=== PATIENT | female | born 2000 | race American Indian/Alaskan Native ===

== ENCOUNTER 2020-02-08 17:39 | Emergency (ER) | payer OTHER ==
[2020-02-08 17:55] VITALS: BP 130/82
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
[2020-02-08 20:51] LABS: HCG Qualitative,Urine Negative (Negative)
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
[2020-02-08] MEDS ORDERED: IBUPROFEN 800 MG TAB PO ONE (22:07)
[2020-02-08] MEDS ORDERED: IBUPROFEN 800 MG TAB ONE (22:07)
== END 2020-02-08 22:14 | disposition home or self-care (01) ==
LOC: ED 17:39
DX: S16.1XXA Strain of muscle, fascia and tendon at neck level, initial encounter (principal); S10.91XA Abrasion of unspecified part of neck, initial encounter; Z79.899 Other long term (current) drug therapy; V49.59XA Passenger injured in collision with other motor vehicles in traffic accident, initial encounter; W22.10XA Striking against or struck by unspecified automobile airbag, initial encounter; Y93.89 Activity, other specified; Y92.410 Unspecified street and highway as the place of occurrence of the external cause; Y99.8 Other external cause status
CPT/HCPCS: 72040; 81025

== ENCOUNTER 2021-03-29 20:11 | Outpatient (CLI) | payer OTHER ==
[2021-03-29 22:36] LABS: Bilirubin,Urine NEG (Negative); Blood,Urine NEG (Negative); Color,Urine Yellow (Yellow); Mucus,Urine FEW /HPF; Urobilinogen,Urine < 2.0 mg/dL (<2.0)
[2021-03-29 22:41] LABS: Hematocrit 33.5 % (30.3-42.9); Mean Corpuscular HGB Conc 33 % (30-34); Mean Corpuscular Volume 90 fl (79-97); Platelet Count 236 K/mm3 (140-440); Red Blood Count 3.71 M/mm3 (3.65-5.03); Red Cell Distribution Width 15.2 % (13.2-15.2)
[2021-03-29 23:15] LABS: Alanine Aminotransferase 9 units/L (7-56)
[2021-03-29 23:43] VITALS: BP 147/86
[2021-03-29] MEDS ORDERED: ACETAMINOPHEN 500 MG TAB PO ONE (23:50)
[2021-03-30 00:13] LABS: Uric Acid 4.6 mg/dL (3.5-7.6)
== END 2021-03-30 00:05 | disposition home or self-care (01) ==
LOC: TRG 20:11 → APU 20:13 → TRG 03-30 00:05
PROVIDERS: ATTEND Obstetrics & Gynecology
DX: O12.03 Gestational edema, third trimester (principal); Z3A.37 37 weeks gestation of pregnancy
CPT/HCPCS: 36415; 59025; 81001; 82565; 83615; 84450; 84460; 84550; 85027